=== PATIENT | male | born 1975 | race African-American/Black ===

== ENCOUNTER 2017-07-12 15:11 | Emergency (ER) | payer OTHER ==
[2017-07-12] MEDS ORDERED: Acetaminophen 500 MG TAB ONE (15:48)
== END 2017-07-12 16:00 | disposition home or self-care (01) ==
LOC: ERS 15:11
DX: H72.91 Unspecified perforation of tympanic membrane, right ear (principal); H60.91 Unspecified otitis externa, right ear; F17.210 Nicotine dependence, cigarettes, uncomplicated
CPT/HCPCS: 99283

== ENCOUNTER 2018-09-04 11:08 | Outpatient (CLI) | payer OTHER ==
--- NOTE | 2018-09-04 12:04 | RAD ---
THREE VIEWS LEFT SHOULDER: HISTORY: Left shoulder pain. FINDINGS: AP internally, externally, and scapula-Y views left shoulder obtained. Images demonstrate widening of the left AC joint as well as the coracoclavicular joint. This is conc erning for a type III AC joint separation with injury and possible rupture of the AC and coracoclavic ular ligaments. IMPRESSION: Left acromioclavicular joint separation as described above. POS: TIFFANIE
== END 2018-09-04 11:09 | disposition home or self-care (01) ==
LOC: RAD-FRANK 11:08
PROVIDERS: ATTEND Nurse Practitioner Family
DX: M25.512 Pain in left shoulder (principal); S43.102A Unspecified dislocation of left acromioclavicular joint, initial encounter

== ENCOUNTER 2019-08-14 13:49 | Emergency (ER) | payer OTHER, SELFPAY ==
[2019-08-14] MEDS ORDERED: Acetaminophen 500 MG TAB ONE (15:22)
== END 2019-08-14 15:30 | disposition home or self-care (01) ==
LOC: ERS 13:49
DX: J11.1 Influenza due to unidentified influenza virus with other respiratory manifestations (principal); F17.210 Nicotine dependence, cigarettes, uncomplicated
CPT/HCPCS: 99283

== ENCOUNTER 2019-10-07 19:06 | Emergency (ER) | payer SELFPAY ==
--- NOTE | 2019-10-07 20:49 | CT ---
Head CT without contrast 10/07/2019: Comparison: None HISTORY: Headache for weeks on the right TECHNIQUE: Axial CT imaging at 5 mm intervals from vertex through skull base without contrast FINDINGS: Imaged paranasal sinuses and mastoid air cells well-aerated. No displaced calvarial fractur e. No intracranial hemorrhage, midline shift, mass effect, or ventricular enlargement. IMPRESSION: No acute findings.
== END 2019-10-07 21:05 | disposition home or self-care (01) ==
LOC: ERS 19:06
DX: R51 Headache (principal); F17.210 Nicotine dependence, cigarettes, uncomplicated
CPT/HCPCS: 70450